=== PATIENT | male | born 1940 | race Caucasian/White ===

== ENCOUNTER → 2017-03-09 | Outpatient (CLI) | payer MEDICARE ==
--- NOTE | 2017-03-09 15:21 | RADIOLOGY REPORT (SQ) ---
EXAM DESCRIPTION: CT CHEST WITHOUT COMPLETED DATE/TIME: 03/09/2017 2:14 pm REASON FOR STUDY: OTHER NONSPECIFIC ABN FINDING OF LUNG FIELD (R91.8) R91.8 OTHER NONSPECIFIC ABNOR MAL FINDING OF LUNG FIELD COMPARISON: None. TECHNIQUE: CT scan performed of the chest without intravenous contrast. Images reviewed with lung, soft tissue and bone windows. Reconstructed coronal and sagittal MPR images reviewed. All images st ored on PACS. All CT scanners at this facility use dose modulation, iterative reconstruction, and/or weight based d osing when appropriate to reduce radiation dose to as low as reasonably achievable (ALARA). [facility]: Dose Right [facility]: CareDose [facility]: Dose Right [facility]: Teradose 4D [facility]: [employer] RADIATION DOSE: Up-to-date CT equipment and radiation dose reduction techniques were employed. CTDIv ol: 10.7 mGy. DLP: 404 mGy-cm. mGy. LIMITATIONS: No technical limitations. FINDINGS: LUNGS AND PLEURA: No masses, infiltrates, pneumothorax. No pleural effusions, calcificati ons. Old rib fractures on the left. HILAR AND MEDIASTINAL STRUCTURES: Densely calcified right hilar nodes. HEART AND VASCULAR STRUCTURES: No aneurysm. No pericardial effusion. Significant coronary atheroscl erosis. UPPER ABDOMEN: No significant findings. Limited exam. THYROID AND OTHER SOFT TISSUES: No masses. No adenopathy. BONES: Old left rib fractures. HARDWARE: None in the chest. OTHER: No other significant findings. IMPRESSION: 1. No acute pathology in the thorax. 2. Densely calcified right hilar lymph nodes. 3. Old left rib fractures. TECHNICAL DOCUMENTATION: JOB ID: [id number] Quality ID # [id number]: Final reports with documentation of one or more dose reduction techniques (e.g., Au tomated exposure control, adjustment of the mA and/or kV according to patient size, use of iterative reconstruction technique) 2010 [employer]- All Rights Reserved
== END ==
LOC: RAD 13:53
PROVIDERS: ATTEND Family Medicine
DX: R91.8 Other nonspecific abnormal finding of lung field (principal)
CPT/HCPCS: 71250

== ENCOUNTER → 2017-11-09 | Outpatient (CLI) | payer MEDICARE ==
--- NOTE | 2017-11-09 11:21 | RADIOLOGY REPORT (SQ) ---
EXAM DESCRIPTION: U/S ABD AORTIC SCREENING COMPLETED DATE/TIME: 11/09/2017 10:20 am REASON FOR STUDY: HX OF TOBACCO ABUSE (Z87.891) Z87.891 PERSONAL HISTORY OF NICOTINE DEPENDENCE COMPARISON: None. TECHNIQUE: Static and dynamic grayscale images acquired of the aorta and stored on PACs. Selected co hayley Doppler and spectral images recorded. LIMITATIONS: Bilateral proximal common iliac arteries are not visualized due to bowel gas FINDINGS: AORTIC CALIBER MAXIMAL PROXIMAL: 2.1 cm. MID: 2.0 cm. DISTAL: 2.1 cm. ILIAC DIAMETER RIGHT: Not visualized due to bowel gas LEFT: Not visualized due to bowel gas OTHER: No other significant finding. IMPRESSION: NO ABDOMINAL AORTIC ANEURYSM. COMMENT: Aorta screening examinations categories: Negative - less than 3 cm. TECHNICAL DOCUMENTATION: JOB ID: [id number] [employer]- All Rights Reserved Reading location - IP/workstation name: [email or web address]
== END ==
LOC: RAD 09:40
PROVIDERS: ATTEND Family Medicine
DX: Z13.6 Encounter for screening for cardiovascular disorders (principal); Z87.891 Personal history of nicotine dependence
CPT/HCPCS: 76706

== ENCOUNTER → 2018-05-07 | Outpatient (CLI) | payer MEDICARE ==
--- NOTE | 2018-05-07 18:45 | RADIOLOGY REPORT (SQ) ---
EXAM DESCRIPTION: MRI CERVICAL SPINE WITHOUT COMPLETED DATE/TIME: 05/07/2018 9:34 am REASON FOR STUDY: OTHER CERVICAL DISC DEGENERATION, MID-CERVICAL REGION M50.320 OTHER CERV DISC DEG ENERATION, MID-CERVICAL RGN, UNSP COMPARISON: Plain radiographs 05/29/2014 TECHNIQUE: Sagittal and Axial imaging includes T1, T2, STIR and gradient echo sequences. LIMITATIONS: None. FINDINGS: ALIGNMENT: Degenerative retrolisthesis of C6 on C7 and anterolisthesis of C7 on T1 VERTEBRAE: Intact. BONE MARROW: Marked reactive endplate changes C5-6 and C6-7. Moderate reactive endplate changes C2-3 and C3-4. DISCS: Marked loss of height and T2 signal C5-6 and C6-7. Moderate loss of height and T2 signal C2-3 , C3-4. HARDWARE: Extensive hardware of the posterior elements in the upper cervical spine. CORD AND BASE OF BRAIN: Normal in size and signal intensity. SOFT TISSUES: No soft tissue masses. C1-C2: No significant spinal stenosis. C2-C3: Diffuse degenerative disc without exit foraminal stenosis. Marked signal artifact posterior e lements. C3-C4: Disc osteophyte complex with mild narrowing of the exit foramina. C4-C5: Disc osteophyte complex. Flattening of the anterior thecal sac. Posterior element overgrowth . Mild narrowing of the exit foramina central canal stenosis. C5-C6: Disc osteophyte complex with moderate narrowing of the right exit foramina and flattening of t he anterior thecal sac. C6-C7: Disc osteophyte complex with marked narrowing of the right exit foramina moderate narrowing of the left exit foramina. C7-T1: No significant spinal stenosis or exit foraminal stenosis. UPPER THORACIC: Incompletely imaged. No significant spinal stenosis or exit foraminal stenosis. OTHER: No other significant finding. IMPRESSION: Post element surgical changes of the upper cervical spine. Multilevel spondylosis with predominantly exit foraminal narrowing. Marked narrowing and of the C6-7 right exit foramina. TECHNICAL DOCUMENTATION: JOB ID: [id number] [employer]- All Rights Reserved Reading location - IP/workstation name: [email or web address]
== END ==
LOC: RAD 08:52
PROVIDERS: ATTEND Internal Medicine
DX: M50.320 Other cervical disc degeneration, mid-cervical region, unspecified level (principal)
CPT/HCPCS: 72141

== ENCOUNTER → 2018-08-01 | Outpatient (CLI) | payer MEDICARE ==
--- NOTE | 2018-08-01 12:27 | RADIOLOGY REPORT (SQ) ---
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 TECHNIQUE: Axial images acquired through the cervical spine without intravenous contrast. Images re viewed with lung, soft tissue and bone windows. Reconstructed coronal and sagittal MPR images review ed. Images stored on PACS. All CT scanners at this facility use dose modulation, iterative reconstruction, and/or weight based d osing when appropriate to reduce radiation dose to as low as reasonably achievable (ALARA). [facility]: Dose Right [facility]: CareDose [facility]: Dose Right [facility]: Teradose 4D [facility]: [email or web address] RADIATION DOSE: CT Rad equipment meets quality standard of care and radiation dose reduction techniq ues were employed. CTDIvol: 20.7 mGy. DLP: 516 mGy-cm. mGy. LIMITATIONS: None. 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 There is reversal of the lordotic curve. Grade 1 anterol isthesis C4 relative to C5 and C7 relative to T1. There has been posterior decompression at C3-4 wit h interlaminar fusion from skullbase to C4. Multilevel disc space narrowing with mild spinal stenosi s at C5- 6 and C6-7. Moderate neural foraminal narrowing at C5- 6 and severe neural foraminal narrow ing bilaterally at C6-7. No prevertebral soft tissue swelling. IMPRESSION: Multilevel spondylosis status post posterior decompression and interlaminar fusion. Mil d spinal stenosis C5- 6 and C6-7. TECHNICAL DOCUMENTATION: JOB ID: [id number] Quality ID # [id number]: Final reports with documentation of one or more dose reduction techniques (e.g., Au tomated exposure control, adjustment of the mA and/or kV according to patient size, use of iterative reconstruction technique) 2010 [employer]- All Rights Reserved Reading location - IP/workstation name: [email or web address]
== END ==
LOC: RAD 08:38
PROVIDERS: ATTEND Specialist
DX: M47.812 Spondylosis without myelopathy or radiculopathy, cervical region (principal)
CPT/HCPCS: 72125